=== PATIENT | male | born 1995 | race Caucasian/White ===

== ENCOUNTER 2023-02-27 19:10 | Emergency (ER) | payer MEDICAID ==
[~2023-02-27] VITALS: Ht 167.6 cm; Wt 82.3 kg
[2023-02-27 20:08] VITALS: BP 141/63; PULSE 66; RESP 15; TEMP 97.1; O2SAT 98
== END 2023-02-27 21:14 | disposition left against medical advice (07) ==
LOC: MED 19:10
DX: M25.562 Pain in left knee (principal); Z53.21 Procedure and treatment not carried out due to patient leaving prior to being seen by health care provider
CPT/HCPCS: 99281